=== PATIENT | male | born 1995 | race Two or more races ===

== ENCOUNTER 2019-10-29 04:59 | Emergency (ER) | payer SELFPAY ==
[~2019-10-29] VITALS: Ht 170.2 cm; Wt 77.2 kg
--- NOTE | 2019-10-29 05:34 | PHYS DOC ---
General Adult EDM: Chief Complaint: LOWER EXT PAIN HPI: HPI: Patient is a 24 year old male who presents with complaint of left ankle pain after injuring it while playing basketball last night at about 6 PM. Patient states that he had no other injuries but has had difficulty with weightbearing ever since. He states the pain is worse this morning and currently rates pain at about a 9 out of 10. He states that he is really not been able to bear weight this morning due to the pain. [] (SHANE LESTER Jr. DO) Review of Systems: Review of Systems: Constitutional: Denies fever or chills. [] Respiratory: Denies cough or shortness of breath. [] Cardiovascular: Denies chest pain or edema. [] Musculoskeletal: Complains of left ankle pain. [] Integument: Denies rash. [] Neurologic: Denies headache, focal weakness or sensory changes. [] A full 10 point review of systems has been reviewed and is otherwise negative. (SHANE LESTER Jr. DO) Heart Score: Risk Factors: Risk Factors: DM, Current or recent (<one month) smoker, HTN, HLP, family history of CAD, obesity. Risk Scores: Score 0 - 3: 2.5% MACE over next 6 weeks - Discharge Home Score 4 - 6: 20.3% MACE over next 6 weeks - Admit for Clinical Observation Score 7 - 10: 72.7% MACE over next 6 weeks - Early Invasive Strategies (SHANE LESTER Jr. DO) Allergies: Allergies: Allergies Coded Allergies Type Severity Reaction Last Updated Verified No Known Drug Allergies 10/29/19 No (SHANE LESTER Jr. DO) Physical Exam: PE: Constitutional: Well developed, well nourished, no acute distress, non-toxic appearance. [] HENT: Normocephalic, atraumatic, bilateral external ears normal, oropharynx moist, no oral exudates, nose normal. [] Eyes: PERRLA, EOMI, conjunctiva normal, no discharge. [] Neck: Normal range of motion, no tenderness, supple. [] Cardiovascular: Regular rate and rhythm [] Lungs & Thorax: Bilateral breath sounds clear to auscultation [] Abdomen: Bowel sounds normal, soft, no tenderness. [] Skin: Warm, dry, no erythema, no rash. [] Extremities: Examination of left ankle demonstrates moderate soft tissue swelling with significant tenderness to palpation overlying the lateral aspect of the ankle and distal lower leg. There is mild tenderness to palpation around the proximal fibula [] Neurologic: Alert and oriented X 3, no focal deficits noted. [] (SHANE LESTER Jr., DO) EKG: EKG: [] (SHANE LESTER Jr., DO) Radiology/Procedures: Radiology/Procedures: [] (SHANE LESTER Jr., DO) Radiology/Procedures: [facility] [address] [place] [address] IMAGING REPORT Signed PATIENT: JUICE CERVANTES ACCOUNT: [id number] : 1995 LOCATION: ER AGE: 24 SEX: M EXAM STATUS: REG ER ORD. PHYSICIAN: SHANE LESTER Jr., DO REASON: injury during basketball PROCEDURE: KNEE LEFT 3V 3 views left ankle HISTORY: Pain after injury during basketball AP lateral oblique views There is an ossification projecting posterior to the talus on the lateral view however there is no donor site. The tibiotalar relationship is normal. There is moderate soft tissue swelling over the lateral malleolus. IMPRESSION: Moderate soft tissue swelling over the lateral malleolus could indicate ligamentous injury. There is no evidence of fracture or dislocation. End impression 3 views left knee AP lateral oblique views The visualized osseous structures appear normal. IMPRESSION: No acute findings. See 3 views left ankle. Electronically signed by: Avni Suarez III, MD (10/29/2019 6:21 AM) [id number] DICTATED and SIGNED BY: AVNI SUAREZ III, MD DATE: 10/29/19 0621 (BRIGIDO HARE DO) Course & Med Decision Making: Course & Med Decision Making Pertinent Labs and Imaging studies reviewed. (See chart for details) [] (SHANE LESTER Jr., DO) Course & Med Decision Making Patient is a 24 year old male who was evaluated in the ER today due to left ankl e injury. Xray did not show any fracture or dislocation. Air cast splint was applied by RN. Patient was discharged home with crutches. He will need to follow up with family doctor for reevaluation with MRI. He will need to follow up with orthopedic surgeon for further evaluation and treatment. Patient is amenable to plan of care. (BRIGIDO HARE DO) Dragon Disclaimer: Dragnathan Disclaimer: This electronic medical record was generated, in whole or in part, using a voice recognition dictation system. (SHANE LESTER Jr. DO) Departure Departure Impression: Primary Impression: Left ankle sprain Disposition: HOME, SELF-CARE Condition: STABLE Referrals: NO PCP (PCP) please follow up with your doctor next week for reevaluation with MRI of your left ankle. Patient Instructions: Ankle Sprain Additional Instructions: please follow up with your doctor next week for reevaluation with MRI of your left ankle to evaluate for ligament injury. Xray today did not show any fracture or dislocation but you may have ligament injury. You will need to follow up with an orthopedic surgeon for further evaluation. Scripts Naproxen Sodium (ANAPROX DS) 550 Mg Tablet 1 TAB PO BID for ankle pain for 15 Days, #30 TAB 0 Refills Prov: BRIGIDO HARE DO 10/29/19 SHANE LESTER Jr., DO October 29, 2019 05:34 BRIGIDO HARE DO October 29, 2019 06:55
[2019-10-29] MEDS ORDERED: fentaNYL PF VIAL 100 MCG/2 ML VIAL IM ONE (05:45)
--- NOTE | 2019-10-29 06:23 | RAD ---
3 views left ankle HISTORY: Pain after injury during basketball AP lateral oblique views There is an ossification projecting posterior to the talus on the lateral view however there is no donor site. The tibiotalar relationship is normal. There is moderate soft tissue swelling over the lateral malleolus. IMPRESSION: Moderate soft tissue swelling over the lateral malleolus could indicate ligamentous injury. There is no evidence of fracture or dislocation. End impression 3 views left knee AP lateral oblique views The visualized osseous structures appear normal. IMPRESSION: No acute findings. See 3 views left ankle. Electronically signed by: Graeme Emanuel III, MD (10/29/2019 6:21 AM) [id number]
[2019-10-29 06:36] VITALS: BP 154/87
[2019-10-29] MEDS ORDERED: NAPR-682 PO (06:53)
== END 2019-10-29 07:00 | disposition home or self-care (01) ==
LOC: ER 04:59
DX: S93.492A Sprain of other ligament of left ankle, initial encounter (principal); M25.562 Pain in left knee; R60.0 Localized edema; W21.05XA Struck by basketball, initial encounter; Y93.89 Activity, other specified; Y92.89 Other specified places as the place of occurrence of the external cause; Y99.8 Other external cause status
CPT/HCPCS: 29515; 73562; 73610; 96372; 99285; J3010

== ENCOUNTER 2019-11-08 10:22 | Emergency (ER) | payer SELFPAY ==
[~2019-11-08] VITALS: Ht 170.2 cm; Wt 77.2 kg
[~2019-11-08 10:22] MED LIST: NAPR-682 PO
[2019-11-08] MEDS ORDERED: ONDANSETRON PF 4 MG/2 ML VIAL. ONE (10:42)
[2019-11-08] MEDS ORDERED: ONDANSETRON PF 4 MG/2 ML VIAL. IVP ONE ×2 (10:45→12:00)
[2019-11-08] MEDS ORDERED: IV NORMAL SALINE 1000ML BAG 1,000 ML IV ONE (10:45)
[2019-11-08 10:54] LABS: BASO % 0 % (0-3); EOS # 0.1 x10^3/uL (0.0-0.7); EOS % 1 % (0-3); HEMATOCRIT 43.3 % (39.0-53.0); LYMPH # 2.5 x10^3/uL (1.0-4.8); LYMPH % 20 % (24-48); MEAN CORPUSCULAR HEMOGLOBIN 30 pg (25-35); MEAN CORPUSCULAR HGB CONC 35 g/dL (31-37); MEAN CORPUSCULAR VOLUME 87 fL (79-100); MONO # 0.6 x10^3/uL (0.0-1.1); MONO % 5 % (0-9); NEUT # 8.9 x10^3/uL (1.8-7.7); NEUT % 74 % (31-73); PLATELET COUNT 251 x10^3/uL (140-400); RED BLOOD COUNT 4.97 x10^6/uL (4.30-5.70); RED CELL DISTRIBUTION WIDTH 12.8 % (11.5-14.5); WHITE BLOOD COUNT 12.2 x10^3/uL (4.0-11.0)
[2019-11-08 11:02] LABS: CALCIUM 9.9 mg/dL (8.5-10.1); CREATININE 1.1 mg/dL (0.7-1.3); POTASSIUM 3.5 mmol/L (3.5-5.1)
[2019-11-08 11:07] LABS: ALBUMIN 4.4 g/dL (3.4-5.0); ALBUMIN/GLOBULIN RATIO 1.1 (1.0-1.7); TOTAL PROTEIN 8.5 g/dL (6.4-8.2)
[2019-11-08 11:23] LABS: TOTAL BILIRUBIN 0.4 mg/dL (0.2-1.0)
[2019-11-08] MEDS ORDERED: METOCLOPRAMIDE HCL 10 MG/2 ML VIAL. IVP ONE (11:30)
[2019-11-08] MEDS ORDERED: KETOROLAC 30 MG/ML VIAL. IVP ONE (11:30)
[2019-11-08 12:02] LABS: BILIRUBIN,URINE NEGATIVE (NEG); CLARITY,URINE CLEAR; COLOR,URINE YELLOW; NITRITE,URINE NEGATIVE (NEG); PH,URINE 8.5 (<5.0-8.0); PROTEIN,URINE NEGATIVE (NEG-TRACE); UROBILINOGEN,URINE 0.2 mg/dL (0.2 mg/dL)
[2019-11-08 12:10] LABS: SQUAMOUS EPITHELIAL CELL,UR OCC /LPF
[2019-11-08 12:11] LABS: BACTERIA,URINE 0 /HPF (0-FEW); RBC,URINE OCC /HPF (0-2)
[2019-11-08] MEDS ORDERED: IOHEXOL 300 MG/ML 100ML VIAL. IV ONE (12:15)
[2019-11-08] MEDS ORDERED: CONTRAST GIVEN. MC PRN (12:30)
[2019-11-08 12:31] VITALS: BP 143/76
--- NOTE | 2019-11-08 12:41 | RAD ---
CT ABD PELV W/ IV CONTRST ONLY History: Severe abdominal pain. Technique: After the administration of intravenous contrast, CT imaging was performed of the abdomen and pelvis. Oral contrast was administered. Multiplanar images are reviewed. Exposure: One or more of the following individualized dose reduction techniques were utilized for this examination: 1. Automated exposure control 2. Adjustment of the mA and/or kV according to patient size 3. Use of iterative reconstruction technique. Comparison: None Findings: Lower chest: No consolidation or pleural effusion. Abdomen and pelvis: The liver, spleen, adrenal glands, pancreas and gallbladder are unremarkable. No biliary ductal dilatation. Unremarkable appearance of the kidneys. No hydronephrosis. Decompressed urinary bladder. Normal appendix. No evidence of bowel obstruction. Minimal oral contrast noted opacifying proximal small bowel loops. No pathologic lymphadenopathy. No ascites. Bones: No pathologic osseous lesions. Impression: 1. No acute abdominal or pelvic pathology. Electronically signed by: Kehinde Soto DO (11/08/2019 12:38 PM) [id number]
[2019-11-08] MEDS ORDERED: ONDA4TAB7 PO (12:51)
[2019-11-08] MEDS ORDERED: HALOPERIDOL LACTATE 5 MG/ML VIAL. ONE (12:52)
[2019-11-08] MEDS ORDERED: HALOPERIDOL LACTATE 5 MG/ML VIAL. IVP ONE (13:00)
--- NOTE | 2019-11-08 13:55 | PHYS DOC ---
Past Medical History Past Medical History: No Pertinent History Past Surgical History: No Surgical History Smoking Status: Never Smoker Alcohol Use: Occasionally General Adult EDM: Chief Complaint: ABDOMINAL PAIN HPI: HPI: Patient is a 24 year old male who presents with epigastric abdominal pain and vomiting. He states that this started suddenly this morning. He has never had pain similar to this in the past. He has never had surgery on his abdomen. He states he has been unable to keep anything down and that he feels awful. He denies any fever, chills, sweats, headache, cough, shortness of breath. He does smoke marijuana every day. Review of Systems: Review of Systems: General: Denies fever, chills, sweats, fatigue Eyes: Denies drainage, blurred vision HENT: Denies rhinorrhea, sore throat Respiratory: Denies cough, shortness of breath, wheezing Cardiac: Denies edema, palpitations, chest pain GI: Reports abdominal pain, N/V MSK: Denies back pain, neck pain Skin: Denies rash, jaundice Neuro: Denies headache, dizziness Psychiatric: Denies SI/HI Heart Score: Risk Factors: Risk Factors: DM, Current or recent (<one month) smoker, HTN, HLP, family history of CAD, obesity. Risk Scores: Score 0 - 3: 2.5% MACE over next 6 weeks - Discharge Home Score 4 - 6: 20.3% MACE over next 6 weeks - Admit for Clinical Observation Score 7 - 10: 72.7% MACE over next 6 weeks - Early Invasive Strategies Current Medications: Current Medications Medications (Trade) Dose Ordered Sig/Eber Start Time Stop Time Status Last Admin Dose Admin Haloperidol Lactate (Haldol Inj) 5 mg STK-MED ONCE 11/08/19 12:52 11/08/19 12:52 DC Info (CONTRAST GIVEN -- Rx MONITORING) 1 each PRN DAILY PRN 11/08/19 12:30 11/10/19 12:29 Iohexol (Omnipaque 300 Mg/ml) 75 ml 1X ONCE 11/08/19 12:15 11/08/19 12:17 DC 11/08/19 12:20 75 ML Ketorolac Tromethamine (Toradol 30mg Vial) 30 mg 1X ONCE 11/08/19 11:30 11/08/19 11:31 DC 11/08/19 11:39 30 MG Metoclopramide HCl (Reglan Vial) 10 mg 1X ONCE 11/08/19 11:30 11/08/19 11:31 DC 11/08/19 11:39 10 MG Ondansetron HCl (Zofran) 4 mg 1X ONCE 11/08/19 12:00 11/08/19 12:01 DC 11/08/19 12:09 4 MG Sodium Chloride 1,000 ml @ 0 mls/hr 1X ONCE 11/08/19 10:45 11/08/19 10:47 DC 11/08/19 10:51 1,000 MLS/HR Allergies: Allergies: Allergies Coded Allergies Type Severity Reaction Last Updated Verified No Known Drug Allergies 10/29/19 No Physical Exam: PE: Constitutional: Well developed, well nourished, Cooperative, NAD, distressed, vomiting HEENT: Normocephalic, atraumatic, oropharynx moist, EOMI, PERRL, no drainage from eyes, normal conjunctiva Neck: Supple, normal range of motion, no stridor Cardiovascular: RRR, 2+ radial pulses bilaterally, no edema Respiratory: CTA bilaterally, no respiratory distress, no wheezing/crackles Abdomen: Soft, epigastric tenderness, nondistended, no masses Skin: Warm, dry, intact Extremities: No obvious deformities Neurologic: Alert and Oriented x3, motor and sensory function grossly normal, no focal deficits Psychologic: Normal affect, normal judgment, normal mood. No SI/HI Current Patient Data: Labs: Laboratory Tests Test 11/08/19 10:34 11/08/19 11:50 White Blood Count 12.2 x10^3/uL (4.0-11.0) H Red Blood Count 4.97 x10^6/uL (4.30-5.70) Hemoglobin 15.0 g/dL (13.0-17.5) Hematocrit 43.3 % (39.0-53.0) Mean Corpuscular Volume 87 fL (79-100) Mean Corpuscular Hemoglobin 30 pg (25-35) Mean Corpuscular Hemoglobin Concent 35 g/dL (31-37) Red Cell Distribution Width 12.8 % (11.5-14.5) Platelet Count 251 x10^3/uL (140-400) Neutrophils (%) (Auto) 74 % (31-73) H Lymphocytes (%) (Auto) 20 % (24-48) L Monocytes (%) (Auto) 5 % (0-9) Eosinophils (%) (Auto) 1 % (0-3) Basophils (%) (Auto) 0 % (0-3) Neutrophils # (Auto) 8.9 x10^3/uL (1.8-7.7) H Lymphocytes # (Auto) 2.5 x10^3/uL (1.0-4.8) Monocytes # (Auto) 0.6 x10^3/uL (0.0-1.1) Eosinophils # (Auto) 0.1 x10^3/uL (0.0-0.7) Basophils # (Auto) 0.0 x10^3/uL (0.0-0.2) Sodium Level 137 mmol/L (136-145) Potassium Level 3.5 mmol/L (3.5-5.1) Chloride Level 102 mmol/L (98-107) Carbon Dioxide Level 22 mmol/L (21-32) Anion Gap 13 (6-14) Blood Urea Nitrogen 21 mg/dL (8-26) Creatinine 1.1 mg/dL (0.7-1.3) Estimated GFR (Cockcroft-Gault) 83.0 BUN/Creatinine Ratio 19 (6-20) Glucose Level 137 mg/dL (70-99) H Calcium Level 9.9 mg/dL (8.5-10.1) Total Bilirubin 0.4 mg/dL (0.2-1.0) Aspartate Amino Transferase (AST) 20 U/L (15-37) Alanine Aminotransferase (ALT) 20 U/L (16-63) Alkaline Phosphatase 65 U/L (46-116) Total Protein 8.5 g/dL (6.4-8.2) H Albumin 4.4 g/dL (3.4-5.0) Albumin/Globulin Ratio 1.1 (1.0-1.7) Lipase 375 U/L (73-393) Urine Collection Type Unknown Urine Color Yellow Urine Clarity Clear Urine pH 8.5 (<5.0-8.0) Urine Specific [place] 1.020 (1.000-1.030) Urine Protein Negative mg/dL (NEG-TRACE) Urine Glucose (UA) Negative mg/dL (NEG) Urine Ketones (Stick) Trace mg/dL (NEG) Urine Blood Negative (NEG) Urine Nitrite Negative (NEG) Urine Bilirubin Negative (NEG) Urine Urobilinogen Dipstick 0.2 mg/dL (0.2 mg/dL) Urine Leukocyte Esterase Negative (NEG) Urine RBC Occ /HPF (0-2) Urine WBC 1-4 /HPF (0-4) Urine Squamous Epithelial Cells Occ /LPF Urine Bacteria 0 /HPF (0-FEW) Urine Mucus Marked /LPF Laboratory Tests 11/08/19 10:34 Laboratory Tests 11/08/19 10:34 Vital Signs: Vital Signs Date Time Temp Pulse Resp B/P (MAP) Pulse Ox O2 Delivery O2 Flow Rate FiO2 11/08/19 12:31 52 143/76 (98) 100 Room Air 11/08/19 10:36 98.3 24 98.3 EKG: EKG: [] Radiology/Procedures: Radiology/Procedures: [] Course & Med Decision Making: Course & Med Decision Making Pertinent Labs and Imaging studies reviewed. (See chart for details) Patient is a 24-year-old previously healthy male who presents to the emergency room complaining of epigastric abdominal pain and vomiting. He has never had anything like this previously. He is an everyday marijuana smoker. He does have some abdominal tenderness. Abdominal labs and a CT abdomen pelvis were ordered and were normal. Patient was given fluids and symptomatic medications. Patient likely has cyclic vomiting syndrome. He is well-hydrated and is no lo nger vomiting. Patient's test results and vitals while in the ED were fully reviewed and discussed with the patient. Patient is stable and at this time does not need admission to the hospital. We have discussed strict return precautions and the importance of following up with their Primary Care Physician. Patient stated understanding and was given an opportunity to ask any questions. Dragon Disclaimer: Dragon Disclaimer: This electronic medical record was generated, in whole or in part, using a voice recognition dictation system. Departure Departure Impression: Primary Impression: Cyclic vomiting syndrome Disposition: HOME, SELF-CARE Condition: STABLE Patient Instructions: Cyclic Vomiting Syndrome Scripts Ondansetron Hcl (ZOFRAN) 4 Mg Tablet 1 TAB PO PRN Q6-8HRS for nausea, #12 TAB Prov: ALBERTO MYLES MD 11/08/19 ALBERTO MYLES MD November 08, 2019 13:55
== END 2019-11-08 13:33 | disposition home or self-care (01) ==
LOC: ER 10:22
DX: R11.15 Cyclical vomiting syndrome unrelated to migraine (principal); R11.2 Nausea with vomiting, unspecified
CPT/HCPCS: 36415; 74177; 80053; 81001; 83690; 85025; 96361; 96374; 96375; 96376; 99285; J1630; J1885; J2405; J2765; J7030; Q9967

== ENCOUNTER 2021-02-08 22:14 | Emergency (ER) | payer SELFPAY ==
[~2021-02-08] VITALS: Ht 172.7 cm; Wt 72.7 kg
[~2021-02-08 22:14] MED LIST changes: +ONDA4TAB7 PO
[2021-02-08] MEDS ORDERED: ONDANSETRON PF 4 MG/2 ML VIAL. ONE (22:55)
[2021-02-08] MEDS ORDERED: ONDANSETRON PF 4 MG/2 ML VIAL. IVP ONE (23:15)
[2021-02-08 23:20] LABS: BASO # 0.1 x10^3/uL (0.0-0.2); BASO % 0 % (0-3); EOS % 0 % (0-3); HEMATOCRIT 40.8 % (39.0-53.0); HEMOGLOBIN 14.8 g/dL (13.0-17.5); LYMPH # 0.9 x10^3/uL (1.0-4.8); LYMPH % 5 % (24-48); MEAN CORPUSCULAR HEMOGLOBIN 31 pg (25-35); MEAN CORPUSCULAR HGB CONC 36 g/dL (31-37); MEAN CORPUSCULAR VOLUME 84 fL (79-100); MONO % 6 % (0-9); NEUT % 89 % (31-73); PLATELET COUNT 245 x10^3/uL (140-400); RED BLOOD COUNT 4.85 x10^6/uL (4.30-5.70)
--- NOTE | 2021-02-08 23:23 | PHYS DOC ---
Past Medical History Past Medical History: No Pertinent History Additional Past Medical Histor: CYCLIC VOMITING SYNDROME Past Surgical History: Cholecystectomy Smoking Status: Light Tobacco Smoker Alcohol Use: Occasionally General Adult EDM: Chief Complaint: ABDOMINAL PAIN HPI: HPI: 25-year-old male comes to the emergency department complaining of epigastric pain and vomiting over the past 24 hours, the patient said he went to [employer] several days ago for this, he says "I think I have an ulcer", the patient has had prior episodes of this and could potentially also have cyclic vomiting syndrome, denies any fever, chills, he is unvaccinated to coronavirus 19, no chest pain, no loss of taste or smell, no blood in stool Review of Systems: Review of Systems: Constitutional: Denies fever or chills. [] Eyes: Denies change in visual acuity. [] HENT: Denies nasal congestion or sore throat. [] Respiratory: Denies cough or shortness of breath. [] Cardiovascular: Denies chest pain or edema. [] GI: Positive for abdominal pain and vomiting, no diarrhea or blood in the stool : Denies dysuria. [] Musculoskeletal: Denies back pain or joint pain. [] Integument: Denies rash. [] Neurologic: Denies headache, focal weakness or sensory changes. [] Endocrine: Denies polyuria or polydipsia. [] Lymphatic: Denies swollen glands. [] Psychiatric: Denies depression or anxiety. [] Heart Score: C/O Chest Pain: No Risk Factors: Risk Factors: DM, Current or recent (<one month) smoker, HTN, HLP, family history of CAD, obesity. Risk Scores: Score 0 - 3: 2.5% MACE over next 6 weeks - Discharge Home Score 4 - 6: 20.3% MACE over next 6 weeks - Admit for Clinical Observation Score 7 - 10: 72.7% MACE over next 6 weeks - Early Invasive Strategies Current Medications: Current Medications Medications (Trade) Dose Ordered Sig/Eber Start Time Stop Time Status Last Admin Dose Admin Morphine Sulfate (Morphine Sulfate) 4 mg 1X ONCE 02/08/21 23:30 02/08/21 23:31 02/08/21 23:15 4 MG Ondansetron HCl (Zofran) 4 mg 1X ONCE 02/08/21 23:15 02/08/21 23:16 DC 02/08/21 23:01 4 MG Pantoprazole Sodium (PROTONIX VIAL for IV PUSH) 40 mg 1X ONCE 02/08/21 23:30 02/08/21 23:31 02/08/21 23:16 40 MG Sodium Chloride 1,000 ml @ 1,000 mls/hr 1X ONCE 02/08/21 23:30 02/09/21 00:29 02/08/21 23:15 1,000 MLS/HR Allergies: Allergies: Allergies Coded Allergies Type Severity Reaction Last Updated Verified No Known Drug Allergies 10/29/19 No Physical Exam: PE: Gen-well appearing, no acute distress Head: Normocephalic/Atraumatic ENT: atraumatic, PERRLA, EOMI, oropharynx clear Neck: supple, full ROM/strength, no JVD, no nuchal rigidity Lungs: no distress, speaks in full sentences, Clear to auscultation bilaterally CV: reg rate, rhythm, no murmus/rubs/gallops, peripheral pulses equal in all extremities Abdomen: soft/nontender, no guarding/rebound tenderness, no rigidity, non distended, normoactive bowel sounds Musculoskeletal: full ROM/strength in all extremities, atraumatic, no swelling Back: full range of motion/strength Skin: intact, no rashes Lymph: no gross AVA Neuro: alert and oriented x 4, CN 2-12 grossly intact, Motor strength is 5/5 in all extremities, no focal sensory deficits, no focal ataxia, ambulatory with steady gait Psych: normal mood/affect Current Patient Data: Vital Signs: Vital Signs Date Time Temp Pulse Resp B/P (MAP) Pulse Ox O2 Delivery O2 Flow Rate FiO2 02/08/21 23:15 20 100 Room Air 02/08/21 22:34 98.2 60 156/72 (98) 98.2 EKG: EKG: [] Twelve-lead EKG was performed at 11:43 PM: Normal sinus rhythm, rate of 66, nonischemic appearing EKG with normal axis , the QT interval is slightly prolonged at 448 ms Radiology/Procedures: Radiology/Procedures: [] Course & Med Decision Making: Course & Med Decision Making 25-year-old male presented to the emergency department complaining of abdominal pain and vomiting, pertinent differential diagnosis entertained in this patient is benign to GERD/gastritis, pancreatitis, cholelithiasis, cholecystitis, unlikely AAA, SBO, unlikely any acute cardiopulmonary etiology, no pain at proportion on exam and no definitive Zambrano sign, plan at this time is to check urine, labs and a CT as well as an EKG out of an abundance of caution, the patient is not complaining of chest pain, we will treat him with some pain meds and antiemetics, will then reevaluate and reexamine him during work-up and determine the best course of action is data becomes available reevaluation at 1:12 AM: Patient feeling better, abdomen nontender, CT consistent with focal colitis, believe he stable for discharge at this time Patient was seen in the ED for abdominal pain that had improved in the emergency department there is no apparent evidence of any emergency medical pathology at this time, patient was advised follow-up with their primary care provider /physician in the next 24-48 hours, and also was referred to gastroenterology Dr. Kim, and to return to the ED before then if any new or worsening / concerning symptoms had developed. All questions and concerns were addressed at time of disposition Dragon Disclaimer: Dragon Disclaimer: This electronic medical record was generated, in whole or in part, using a voice recognition dictation system. Departure Departure Impression: Primary Impression: Abdominal pain Qualified Codes: R10.13 - Epigastric pain Disposition: HOME / SELF CARE / HOMELESS Condition: IMPROVED Referrals: NO PCP (PCP) ANDERSON KIM MD Patient Instructions: Colitis Additional Instructions: I do not see any evidence of a large ulcer, you have a case of colitis which is some inflammation/infection of the small bowel, going to start you on some antibiotics and pain medicines, I am referring you to Dr. Kim who is a hal roenterologist and can further evaluate you, I recommend that you follow-up with him in the next 2 to 3 days, return to the ER before follow-up if any new or worsening/concerning symptoms develop Scripts Cefuroxime Axetil (CEFUROXIME) 250 Mg Tablet 1 TAB PO BID for 10 Days, #20 TAB 0 Refills Prov: CRYSTAL BLAND MD 02/09/21 Metronidazole (FLAGYL) 500 Mg Tablet 1 TAB PO BID, #14 TAB Prov: CRYSTAL BLAND MD 02/09/21 Ondansetron Hcl (ZOFRAN) 4 Mg Tablet 1 TAB PO PRN Q6-8HRS, #30 TAB Prov: CRYSTAL BLAND MD 02/09/21 Dicyclomine Hcl (DICYCLOMINE HCL) 20 Mg Tablet 20 MG PO QID PRN for PAIN, #20 TAB Prov: CRYSTAL BLAND MD 02/09/21 CRYSTAL BLAND MD Feb 08, 2021 23:23
[2021-02-08] MEDS ORDERED: IV NORMAL SALINE 1000ML BAG 1,000 ML IV ONE (23:30)
[2021-02-08] MEDS ORDERED: PANTOPRAZOLE IV PUSH 40 MG VIAL. IVP ONE (23:30)
[2021-02-08] MEDS ORDERED: MORPHINE SULFATE 4 MG/ML INJ. IVP ONE (23:30)
[2021-02-08 23:34] LABS: CALCIUM 10.1 mg/dL (8.5-10.1); CREATININE 1.3 mg/dL (0.7-1.3); GFR 67.8; POTASSIUM 3.5 mmol/L (3.5-5.1)
[2021-02-08 23:40] LABS: ALBUMIN/GLOBULIN RATIO 1.3 (1.0-1.7); TOTAL BILIRUBIN 1.3 mg/dL (0.2-1.0); TOTAL PROTEIN 8.8 g/dL (6.4-8.2)
[2021-02-08] MEDS ORDERED: CONTRAST GIVEN. MC PRN (23:45)
[2021-02-08] MEDS ORDERED: LIDO:MAALOX 1:1 20 ML SINGLE DOSE. SWSW ONE (23:45)
[2021-02-08] MEDS ORDERED: IOHEXOL 300 MG/ML 100ML VIAL. IV ONE (23:45)
[2021-02-09 00:43] LABS: % ATYL 2 % (0-0); % BANDS 3 % (0-9); % LYMPHS 5 % (24-48); % MONOS 3 % (0-10); % SEGS 87 % (35-66)
[2021-02-09 00:44] LABS: PLT ESTIMATE ADEQUATE (ADEQUATE)
[2021-02-09 00:59] VITALS: BP 137/61
--- NOTE | 2021-02-09 00:59 | RAD ---
PQRS Compliance Statement: One or more of the following individualized dose reduction techniques were utilized for this examinat ion: 1. Automated exposure control 2. Adjustment of the mA and/or kV according to patient size 3. Use of iterative reconstruction technique CT ABDOMEN+PELVIS W Clinical Indication: Reason: abd pain, OMNI 300, 75 ML IV / Spl. Instructions: / History: Comparison: CT abdomen and pelvis of contrast November 08, 2019. Technique: Helical CT imaging of the abdomen and pelvis is performed after 75 cc of Omnipaque 300 IV contrast. Oral contrast not administered. Findings: Lung bases clear. Cardiac size normal. Cholecystectomy. The liver, spleen, pancreas, adrenal glands, abdominal aorta, and kidneys are normal . The stomach is unremarkable. There is no dilated small bowel. The appendix is normal. There is possib le mild wall thickening of the ascending colon. This segment of colon is not well distended. There is minimal surrounding induration. No abdominal adenopathy or free fluid. The urinary bladder is normal. Prostate size normal. No pelvic free fluid. There is degenerative spondylosis of T11/T12. IMPRESSION: Mild wall thickening of the ascending colon with minimal surrounding induration suggests focal coliti s, probably infectious or inflammatory bowel disease. Electronically signed by: Jose Greco MD (02/09/2021 12:56 AM) [facility]
[2021-02-09] MEDS ORDERED: METR500T PO (01:18)
[2021-02-09] MEDS ORDERED: DICY20TA3 PO (01:18)
[2021-02-09] MEDS ORDERED: CEFU250T59 PO (01:18)
[2021-02-09] MEDS ORDERED: ONDA4TAB7 PO (01:18)
--- NOTE | 2021-02-09 01:21 | EKG ---
[facility] [address] [place] [address] Test Date: 2021-02-08 Test Time: 23:43:04 Pat Name: JUICE CERVANTES Department: Room: Gender: M Senior Merchandiser: : 1995 Requested By: CRYSTAL BLAND Order Number: [id number] Reading MD: Measurements Intervals Joanna Rate: 66 P: 66 GA: 148 QRS: 81 QRSD: 102 T: 66 QT: 448 QTc: 472 Interpretive Statements SINUS RHYTHM PROLONGED QT BORDERLINE ECG RI6.02 No previous ECG available for comparison
[2021-02-09] MEDS ORDERED: DICYCLOMINE HCL 10 MG CAPSULE PO ONE (01:30)
[2021-02-09] MEDS ORDERED: ONDANSETRON ODT 4 MG TAB.RAPDIS. PO ONE (01:30)
[2021-02-09] MEDS ORDERED: HYDROcodone/APAP 5/325MG 1 TAB TABLET PO ONE (01:30)
== END 2021-02-09 01:26 | disposition home or self-care (01) ==
LOC: ER 22:14
DX: R10.13 Epigastric pain (principal); R11.10 Vomiting, unspecified; Z72.0 Tobacco use; Z90.49 Acquired absence of other specified parts of digestive tract
CPT/HCPCS: 36415; 74177; 80053; 83690; 85007; 85025; 93005; 96361; 96374; 96375; 99285; C9113; J2270; J2405; J7030; Q9967